=== PATIENT | female | born 1970 | race Hispanic/Latino ===

== ENCOUNTER 2021-07-12 11:46 | Emergency (ER) | payer SELFPAY ==
[~2021-07-12] VITALS: Ht 160 cm; Wt 74.2 kg
[2021-07-12] MEDS ORDERED: DIOVAN80 MG PO (12:13)
[2021-07-12] MEDS ORDERED: KETOROLAC TROMETHAMINE 30 MG/ML VIAL IM STA (12:22)
[2021-07-12] MEDS ORDERED: DEXAMETHASONE SOD PHOS 10 MG/1 ML VIAL IM ONE (12:30)
[2021-07-12] MEDS ORDERED: CYCLOBENZAPRINE HCL 10 MG TAB PO ONE (12:30)
[2021-07-12] MEDS ORDERED: DEXAMETHASONE SOD PHOS INJ 4 MG/ML SDV ONE (12:37)
[2021-07-12] MEDS ORDERED: NAPROSYN500 MG PO (13:06)
[2021-07-12] MEDS ORDERED: PREDNISONE20 MG PO (13:06)
[2021-07-12] MEDS ORDERED: CYCLOBENZAPRINE5 MG PO (13:06)
== END 2021-07-12 13:17 | disposition home or self-care (01) ==
LOC: FSED 12:22
DX: M54.41 Lumbago with sciatica, right side (principal); I10 Essential (primary) hypertension; F17.210 Nicotine dependence, cigarettes, uncomplicated
CPT/HCPCS: 72100; 96372; 99283; J1100; J1885

== ENCOUNTER → 2021-08-10 | Outpatient (CLI) | payer OTHER ==
[~2021-08-10] MED LIST: CYCLOBENZAPRINE5 MG PO; DIOVAN80 MG PO; NAPROSYN500 MG PO; PREDNISONE20 MG PO
== END ==
LOC: MRI 12:25
PROVIDERS: ATTEND Family Medicine
DX: M54.41 Lumbago with sciatica, right side (principal)
CPT/HCPCS: 72148

== ENCOUNTER → 2021-12-05 | Outpatient (CLI) | payer OTHER | LOC: MRI 10:33 | PROVIDERS: ATTEND Specialist | DX: Z09 Encounter for follow-up examination after completed treatment for conditions other than malignant neoplasm (principal); M54.50 Low back pain, unspecified; M79.604 Pain in right leg | CPT/HCPCS: 72110; 72148 ==

== ENCOUNTER 2022-01-25 08:57 | Outpatient (RCR) | payer OTHER | END 2022-01-28 | LOC: PT 08:57 | PROVIDERS: ATTEND Physical Medicine & Rehabilitation | DX: M54.50 Low back pain, unspecified (principal) ==

== ENCOUNTER 2022-01-30 11:12 | Outpatient (RCR) | payer OTHER | END 2022-02-28 | LOC: PT 11:12 | PROVIDERS: ATTEND Physical Medicine & Rehabilitation | DX: M54.50 Low back pain, unspecified (principal) ==

== ENCOUNTER 2024-06-08 06:24 | Emergency (ER) | payer BC, OTHER ==
[~2024-06-08] VITALS: Ht 160 cm; Wt 72.1 kg
[~2024-06-08 06:24] MED LIST changes: +CEFDINIR300 MG PO; +CIPROFLOX-DEXA7.5 ML RIGHT EAR; +IBUPROFEN200 MG PO
[2024-06-08 06:26] VITALS: PULSE 86; RESP 18; TEMP 98
[2024-06-08] MEDS ORDERED: DIPHENHYDRAMINE25 M2 PO (06:59)
[2024-06-08] MEDS ORDERED: TYLENOL325 MG PO (06:59)
[2024-06-08] MEDS: CEFTRIAXONE 1 GM VIAL IM ONE (07:06)
[2024-06-08] MEDS: IBUPROFEN 600 MG TAB PO ONE (07:06)
[2024-06-08 07:18] VITALS: BP 140/98; PULSE 85; RESP 16; TEMP 97.7; O2SAT 97
== END 2024-06-08 07:19 | disposition home or self-care (01) ==
LOC: FSED 06:42
DX: R30.0 Dysuria (principal); N39.0 Urinary tract infection, site not specified; J06.9 Acute upper respiratory infection, unspecified; R53.81 Other malaise; R53.83 Other fatigue; Z11.52 Encounter for screening for COVID-19
CPT/HCPCS: 0223U; 80307; 81003; 83518 ×2; 87400; 99284; J0696

== ENCOUNTER → 2025-01-13 | Outpatient (REF) | payer BC ==
[~2025-01-13] MED LIST changes: +DIPHENHYDRAMINE25 M2 PO; +TYLENOL325 MG PO
== END ==
LOC: US 08:27
PROVIDERS: ATTEND Family Medicine
DX: R74.8 Abnormal levels of other serum enzymes (principal)
CPT/HCPCS: 76700